=== PATIENT | male | born 2000 | race Caucasian/White ===

== ENCOUNTER 2021-12-25 00:07 | Emergency (ER) | payer SELFPAY ==
[~2021-12-25] VITALS: Ht 185.4 cm; Wt 70.5 kg
[2021-12-25 00:11] VITALS: TEMP 98.3
[2021-12-25 00:53] VITALS: BP 114/74; PULSE 80
== END 2021-12-25 00:53 | disposition home or self-care (01) ==
LOC: COL.ER 00:07
DX: S61.216A Laceration without foreign body of right little finger without damage to nail, initial encounter (principal); F17.290 Nicotine dependence, other tobacco product, uncomplicated; Z23 Encounter for immunization; W25.XXXA Contact with sharp glass, initial encounter